=== PATIENT | male | born 1935 | race Caucasian/White ===

== ENCOUNTER 2016-11-15 13:07 | Outpatient (RCR) | payer MEDICARE, OTHER | END 2017-02-13 | disposition home or self-care (01) | LOC: CARDREHAB | DX: Z48.812 Encounter for surgical aftercare following surgery on the circulatory system (principal); Z95.5 Presence of coronary angioplasty implant and graft ==

== ENCOUNTER 2017-03-30 10:00 | Outpatient (RCR) | payer MEDICARE, OTHER | END 2017-06-28 | disposition home or self-care (01) | LOC: CARDREHAB | DX: Z48.812 Encounter for surgical aftercare following surgery on the circulatory system (principal); Z95.5 Presence of coronary angioplasty implant and graft ==

== ENCOUNTER 2017-06-29 10:30 | Outpatient (RCR) | payer MEDICARE, OTHER | END 2017-07-18 11:56 | disposition home or self-care (01) | LOC: CARDREHAB 10:30 | DX: Z48.812 Encounter for surgical aftercare following surgery on the circulatory system (principal); Z95.5 Presence of coronary angioplasty implant and graft ==